=== PATIENT | male | born 1995 | race Caucasian/White ===

== ENCOUNTER 2024-05-20 09:34 | Emergency (ER) | payer BC, SELFPAY ==
[2024-05-20 10:06] VITALS: BP 150/95; PULSE 86; RESP 18; TEMP 37.2; O2SAT 100; BMI 27.3
--- NOTE | 2024-05-20 10:09 | XR_ITS ---
FINAL REPORT CLINICAL HISTORY: N/V/D 7-10 days FINDINGS: The visualized intestinal gas pattern appears unremarkable without evidence to suggest obstruction. No abnormal radiopacities are seen in the abdomen. IMPRESSION: No acute findings. Reviewed, Interpreted and Dictated by Megan Paz MD Transcribed by Susan Urrutia Authenticated and [facility]
--- NOTE | 2024-05-20 10:36 | ED_ITS ---
Discharge Plan Disposition Patient Disposition: Home, Self-Care Condition: Good Prescriptions Prescriptions: New ondansetron 4 mg Tablet,Disintegrating 4 mg PO Q8H PRN (Reason: Nausea) Qty: 10 0RF mupirocin 2 % ointment 1 applic topical TID 7 Days Qty: 15 0RF Referrals Follow up/Referrals: Christiano Ardon [Primary Care Provider] - See instructions Activity Restrictions/Add. Instructions Additional Instructions/Restrictions: Drink plenty of fluids. Eat a bland diet for the next few days to allow you GI tract time to start healing. Take the zofran (ondesetron) as directed for nausea. Follow up with your regular doctor. GO TO THE ER FOR ANY WORSENING SYMPTOMS Return a stool sample to here so it can be analyzed for different infections. Sometimes when diarrhea has went on this long you need to be treated with antibiotic, but we need to know what's causing the diarrhea before it treated. Clinical Impressions Clinical Impression: Diarrhea Stand Alone Forms Stand Alone Forms: Work/School Release Instructions Patient Instructions: Diarrhea Print Language Print Language: Burkinan Discharge ED Provider: Armani Benjamin [facility] General Stated complaint: diarrhea x 1 week, abd pain, blood in stool, H/A Mode of Arrival: Ambulatory Source of Information: Patient Time Seen by Provider: 05/20/24 10:36 Description of Symptoms (Recalled from Triage Doc. by RN): CLEAR DIARRHEA X10 DAYS , BLOOD IN STOOL FOR THE LAST 4 DAYS, BILATERAL LOWER ABD PAIN (CRAMPING) HEENT Symptoms (Recalled from RN notes): No Resp Symptoms (Recalled from RN notes): No Skin Symptoms (Recalled from RN notes): No MS Symptoms (Recalled from RN notes): No Functional Status (Recalled from RN notes): WNL History of Present Illness Provider Complaint: He states that for the past 1 week he has had diarrhea. Over the past few days his diarrhea has looked like there is bright red blood in it. Related Data Previous Rx's ?Medication ?Instructions ?Recorded mupirocin 2 % topical ointment 1 applic topical TID 7 days #15 05/20/24 grams ondansetron 4 mg disintegrating 4 mg PO Q8H PRN Nausea #10 tabs 05/20/24 tablet Allergies Allergy/AdvReac Type Severity Reaction Status Date / Time No Known Allergies Allergy Verified 05/20/24 10:08 Worker's Comp Is this a Worker's Comp case?: No [facility] Disclaimer: The information contained in this section may have been updated after the patient was seen, as this information can be updated by other users. Social History Smoking Status: Never smoker alcohol intake: never current occupational status: employed Travel in the last 8 weeks: None ROS Obtained: Yes All systems reviewed & no additional complaints except as documented Constitutional Constitutional: Denies chills and Denies fever(s) Eyes Eyes: Denies eye discharge ENT Ears, Nose, Mouth, and Throat: Denies dizziness, Denies otalgia and Denies sore throat Cardiovascular Cardiovascular: Denies chest pain Respiratory Respiratory: Denies shortness of breath, Denies chest congestion, Denies cough, Denies stridor and Denies wheezing Gastrointestinal Gastrointestingal: Reports as per HPI, cramping, diarrhea and nausea; Denies abdominal pain or vomiting Musculoskeletal Musculoskeletal: Reports system reviewed and no additional complaints, except as documented and Denies arthralgias Integumentary/Breasts Skin/Breast: Denies rash Neurologic Neurologic: Denies dizziness and Denies paresthesias Allergic/Immunologic Allergic/Immunologic: Denies wheezing Physical Exam General General appearance: alert and in no apparent distress Head Head exam: atraumatic and normocephalic Eye Eye exam: Present normal appearance, PERRL and EOMI ENT ENT exam: Present normal exam, normal oropharynx, mucous membranes moist, TM's normal bilaterally and normal external ear exam Neck Neck exam: Present normal inspection, full ROM and trachea midline; Absent tenderness, meningismus or lymphadenopathy Chest Chest inspection: Present normal inspection and symmetric chest wall rise; Absent tenderness, rash or abscess Respiratory Respiratory exam: Present normal lung sounds bilaterally; Absent respiratory distress, wheezes or stridor Cardiovascular Cardiovascular exam: Present regular rate and normal rhythm; Absent irregular rhythm, systolic murmur, diastolic murmur or JVD Abdominal Exam Abdominal exam: Present soft and hyperactive bowel sounds; Absent distention, tenderness, guarding, rebound, rigidity, psoas sign, obturator sign, heel tap sign, Recio's sign, Rovsing's sign or tenderness at McBurney's Point Extremities Exam Extremities exam: Present normal inspection and full ROM; Absent tenderness Back Exam Back exam: Present normal inspection and full ROM; Absent tenderness, CVA tenderness (R) or CVA tenderness (L) Neurological Exam Neurological exam: Present alert, oriented X3 and CN II-XII intact Psychiatric Psychiatric exam: Present normal affect and normal mood Skin Skin exam: Present warm, dry, intact and normal color Lymphatic Lymphatic Findings: no adenopathy Medical Decision Making Medical Records Medical records reviewed: No I reviewed the patient's medical records. Screening: Per USPSTF and CDC recommendations, given the prevalence of disease in our region, it is our hospital?s policy to screen for HIV and viral Hepatitis for all patients aged 18 and over and those with ongoing risk factors. Mio Inquiry Pt receiving controlled substance: No Vital Signs: 05/20/24 10:06 Temperature 99.0 F Temperature Source Oral Pulse Rate [Left Radial] 86 Respiratory Rate 18 Blood Pressure [Left Arm] 150/95 H Blood Pressure Mean [Left Arm] 113 02 Sat by Pulse Oximetry 100 Orders (Tests/Meds): ORDERS Category Date Time Status KUB (single view) [XR KUB] Stat Exams 05/20/24 10:09 Completed
[2024-05-20 11:23] VITALS: BP 150/95; PULSE 86; RESP 18; TEMP 37.2
== END 2024-05-20 11:23 | disposition home or self-care (01) ==
PROVIDERS: Emergency Provider Nurse Practitioner Family; PCP Family Medicine
DX: R19.7 Diarrhea, unspecified (principal)
CPT/HCPCS: 74018; 99213; G0381

== ENCOUNTER 2024-05-20 13:06 | Outpatient (CLI) | payer BC, SELFPAY ==
[2024-05-20 13:13] LABS: Adenovirus F 40/41, stool Not Detected (NotDetected); Astrovirus Not Detected (NotDetected); Campylobacter Not Detected (NotDetected); Clostridium Difficile A/B, PCR Not Detected (NotDetected); Cryptosporidium Not Detected (NotDetected); Cyclospora Cayetanesis Not Detected (NotDetected); Entamoeba histolytica Not Detected (NotDetected); Enteroaggregative E coli Not Detected (NotDetected); Enteropathogenic E coli Not Detected (NotDetected); Enterotoxigenic E coli Not Detected (NotDetected); Giardia lamblia Not Detected (NotDetected); Norovirus Not Detected (NotDetected); Plesimonas Shigalloides, PCR Not Detected (NotDetected); Rotavirus A Not Detected (NotDetected); Salmonella, PCR Not Detected (NotDetected); Sapovirus Not Detected (NotDetected); Shiga-like toxin E coli Not Detected (NotDetected); Shigella Enterovasive E coli Not Detected (NotDetected); Vibrio Cholerae Not Detected (NotDetected); Vibrio, PCR Not Detected (NotDetected); Yersinia Entercolitica, PCR Not Detected (NotDetected)
== END 2024-05-20 23:59 | disposition home or self-care (01) ==
LOC: LAB 13:09
PROVIDERS: PCP Family Medicine; Visit Provider Nurse Practitioner Family
DX: R19.7 Diarrhea, unspecified (principal); K92.1 Melena
CPT/HCPCS: 87507

== ENCOUNTER 2024-07-13 08:59 | Outpatient (CLI) | payer BC, SELFPAY ==
[2024-07-13 09:39] LABS: Basophils % 0.4 % (0.1-2.0); Eosinophils # 0.3 K/mm3 (0.0-0.4); Eosinophils % 3.3 % (0.1-12.0); Hemoglobin 14.9 g/dL (14.1-18.0); Lymphocytes # 2.3 K/mm3 (0.7-4.5); Lymphocytes % 27.5 % (10-50); Mean Corpuscular HGB Conc 34.7 g/dL (31.8-35.4); Mean Corpuscular Hemoglobin 29.7 pg (27.0-31.2); Mean Corpuscular Volume 85.7 fl (80-94); Mean Platelet Volume 10.1 fl (7.4-10.4); Monocytes # 0.6 K/mm3 (0.1-1.0); Monocytes % 6.5 % (1.7-9.3); Neutrophils # 5.3 K/mm3 (1.8-7.8); Neutrophils % 61.9 % (37.0-80.0); Platelet Count 277 K/mm3 (142-424); Red Blood Count 5.02 M/mm3 (4.60-6.20); Red Cell Distribution Width 12.4 % (11.5-17.5); White Blood Count 8.5 K/mm3 (4.8-10.8)
[2024-07-13 11:12] LABS: Alanine Aminotransferase 43 U/L (12-78); Albumin Level 4.8 g/dl (3.5-5.0); Albumin/Globulin Ratio 2.4 (1.1-1.8); Alkaline Phosphatase 60 U/L (38-126); Anion Gap 12.6 mEq/L (5-15); Aspartate Amino Transferase 38 U/L (17-59); Bilirubin,Total 0.3 mg/dl (0.2-1.3); Blood Urea Nitrogen 17 mg/dl (9-20); Calcium 9.3 mg/dl (8.4-10.2); Carbon Dioxide 27 mmol/L (22.0-30.0); Chloride 102 mmol/L (98-107); Estimated Glomerular Filt Rate 90 ml/min (>60); GFR (African American) 108 ML/MIN (>60); Glucose 123 mg/dl (74-100); Potassium 3.6 mmoL/L (3.5-5.1); Sodium 138 mmol/L (136-145); Total Protein,Serum 6.8 g/dl (6.3-8.2)
[2024-07-14 10:39] LABS: HBsAg Screen Negative (Negative); HCV Ab Non Reactive (Non Reactive); Hep A Ab, IGM Negative (Negative); Hep B Core Ab, IgM Negative (Negative)
[2024-07-16 06:22] LABS: QuantiFERON-TB Gold Plus Negative (Negative)
== END 2024-07-13 23:59 | disposition home or self-care (01) ==
LOC: LAB 09:00
PROVIDERS: PCP Family Medicine; Visit Provider Physician Assistant Medical
DX: L40.0 Psoriasis vulgaris (principal)
CPT/HCPCS: 36415; 80053; 80074; 85025; 86480; 86803

== ENCOUNTER 2025-03-21 10:21 | Outpatient (CLI) | payer BC, SELFPAY ==
--- NOTE | 2025-03-21 10:24 | XR_ITS ---
FINAL REPORT TECHNIQUE: 3 views right foot CLINICAL HISTORY: Evaluation of Right Foot Pain NKI COMPARISON: None FINDINGS: RIGHT FOOT: 3 images of the right foot were obtained. There is no evidence of fracture or dislocation. The joint spaces are intact. There is no soft tissue abnormality identified. IMPRESSION: No acute bony abnormality. Reviewed, Interpreted and Dictated by Simone Garcia MD Transcribed by Malia Pierre Authenticated and [facility]
--- NOTE | 2025-03-21 10:24 | XR_ITS ---
FINAL REPORT TECHNIQUE: Left foot 3 views CLINICAL HISTORY: Evaluation of Left Foot Pain NKI COMPARISON: None FINDINGS: LEFT FOOT: 3 images of the left foot were obtained. There is no evidence of fracture or dislocation. The joint spaces are intact. There is no soft tissue abnormality identified. IMPRESSION: No acute bony abnormality. Reviewed, Interpreted and Dictated by Simone Garcia MD Transcribed by Malia Pierre Authenticated and [facility]
--- OUTSIDE RECORDS SUMMARY | 2025-03-21 15:09 | XMS_ITS | Clinical Summary ---
[facility] Organization [facility] Address [address] [place] [address] Care Team Providers Care Center Line Cutter Operator Name Role Phone Christiano Ardon MD Primary Care Provider [phone] Allergies No known active allergies Medications levoFLOXacin (LEVAQUIN) 500 MG tabletIndication s:Paronychia of great toe, left Take 1 tablet by mouth Daily. 5 tablet 11/19/2024 Active Active Problems Problem Noted Date Diagnosed Date Bipolar 1 disorder 08/08/2020 Mood disorder 01/14/2020 Psoriasis 09/17/2017 Overview (01/14/2020): See Dermatology Center Encounters Date Type Department Care Team Description 01/26/2025 Telephone [facility] [address] [place] [address] Christiano Ardon MD Results 01/07/2025 Telephone [facility] [address] [place] [address] Christiano Ardon MD REFERAL REQUEST from Last 3 Months Immunizations Immunization Administration Dates Next Due DTaP 11/06/2000, 8,05/14/1997,01/29/1997,0 1996 Flu Vaccine Quad PF >36MO 02/06/2019 HPV Quadrivalent 02/10/2013 Hep A, 2 Dose 09/17/2017 Hep A, Unspecified 02/10/2013 Hep B, Unspecified 09/16/1997,1996, 997 HiB 04/19/1998,05/14/1997,01/29/1997 ,1996 IPV 11/03/2001,11/06/2000,01/29/1997 ,1996 Influenza, Unspecified 02/10/2013,01/22/2012,02/2011,01/19/2010 MMR 11/06/2000,01/16/1998 Meningococcal MCV4P (Menactra) 02/10/2013,2007 Tdap 03/15/2019,09/17/2017,12/09/2007 Varicella 12/09/2007,12/16/1997 Family History Medical History Relation Name Comments Arthritis Father Diabetes Father Hyperlipidemia Father Hypertension Father Liver disease Father Stroke Father Arthritis Mother Diabetes Mother Hyperlipidemia Mother Hypertension Mother Kidney disease Mother Relation Name Status Comments Father Alive Mother Social History Tobacco Use Types Packs/Day Years Used Date Smoking Tobacco: Every Day Cigarettes 1.5 12 Smokeless Tobacco: Never Comments:working on this 202 0, slowly reducing Alcohol Use Standard Drinks/Week Comments Yes 0 (1 standard drink = 0.6 oz pur e alcohol) on weekends PHQ-2 Answer Date Recorded Patient Health Questionnaire-2 Score 0 11/19/2024 Sex and Gender Information Value Date Recorded Sex Assigned at Not on file Legal Sex Male 3:20 PM EDT Gender Identity Not on file Sexual Orientation Not on file Occupation Industry Job Start Date Job End Date Not on file Not on file Not on file Not on file Last Filed Vital Signs Vital Sign Reading Time Taken Comments Blood Pressure 120/80 11/19/2024 1:52 PM EDT Pulse 89 11/19/2024 1:52 PM EDT Temperature 37.2 C (99 F) 11/19/2024 1:52 PM EDT Respiratory Rate 18 11/19/2024 1:52 PM EDT Oxygen Saturation 97% 11/19/2024 1:52 PM EDT Inhaled Oxygen Concentration - - Weight 83.9 kg (185 lb) 11/19/2024 1:52 PM EDT Height 180.3 cm (5' 11 ) 11/19/2024 1:52 PM EDT Body Mass Index 25.8 11/19/2024 1:52 PM EDT Plan of Treatment Health Maintenance Due Date Last Done Comments Pneumococcal Vaccine 0-49 (1 of 2 - PCV) 10/02/2015 HEPATITIS C SCREENING 01/14/2020 INFLUENZA VACCINE 12/03/2024 02/06/2019, , 01/22/2012, Additional history exists ANNUAL PHYSICAL 12/09/2024 12/10/2023 TDAP/TD VACCINES (4 - Td or Tdap) 03/15/2029 03/15/2019, 09/17/2017, 12/09/2007 Insurance [facility] PPO Care Teams Center Line Cutter Operator Relationship Specialty Start Date End Date Christiano Ardon MD [address] [place] [address] PCP - General Family Medicine 01/14/20
--- OUTSIDE RECORDS SUMMARY | 2025-03-21 15:09 | XMS_ITS | Clinical Summary ---
Author Organization [facility] Address [address] [place] [address] Phone Care Team Providers Care Crop Duster Helper Name Role Phone Unavailable Unavailable Conditions or Problems No information available. Medications No information available. Medications Administered No information available. Allergies, Adverse Reactions, Alerts No information available. Results No information available. Plan of Care No information available. Procedures No information available. Vital Signs No information available. Immunizations No information available. Advance Directives No information available.
--- OUTSIDE RECORDS SUMMARY | 2025-03-21 15:10 | XMS_ITS | Encounter Summary ---
Author Organization [facility] Address [address] [place] [id number] Care Team Providers Care Stripper Black And White Name Role Phone Christiano Ardon MD Primary Care Provider [phone] Reason for Visit * Reason Onset Date Comments Results 01/26/2025 Encounter Details Date Type Department Care Team (Late st Contact Info) Description 01/26/2025 Telephone [facility] [address] [place] [address] Christiano Ardon MD [address] [place] [address] Results Social History Tobacco Use Types Packs/Day Years [...] file Not on file Not on file documented as of this encounter Miscellaneous Notes * Telephone Encounter - Christiano Ardon MD - 01/26/2025 3:50 PM EDT ? Looks like referral sent on 01/07/25 * Telephone Encounter - Wendy Judge MA - 01/26/2025 3:42 PM EDT New msg: Gladis, I was wondering if you could resend the podiatry referral to Dr Chapa at [facility],I've been trying to get scheduled and they said they did not have the referral. Thank you documented in this encounter Plan of Treatment Not on file documented as of this encounter Visit Diagnoses Not on filedocumented in this encounter Care Teams Stripper Black And White Relationship Specialty Start Date End Date Christiano Ardon MD [address] [place] [address] PCP - General Family Medicine 01/14/20 documented as of this encounter
== END 2025-03-21 23:59 ==
LOC: RAD 10:22
PROVIDERS: PCP Family Medicine; Visit Provider Podiatrist
DX: M79.672 Pain in left foot (principal); M79.671 Pain in right foot
CPT/HCPCS: 73630

== ENCOUNTER 2025-03-22 09:42 | Outpatient (CLI) | payer BC, SELFPAY ==
[2025-03-22 09:57] LABS: Hematocrit 46.3 % (42.0-52.0); Hemoglobin 15.4 g/dL (14.1-18.0); Immature Granulocytes % 0.5 %; Mean Corpuscular HGB Conc 33.3 g/dL (31.8-35.4); Mean Corpuscular Hemoglobin 29.3 pg (27.0-31.2); Mean Corpuscular Volume 88.2 fl (80-94); Nucleated Red Blood Cells % 0 %; Platelet Count 244 K/mm3 (142-424); Red Blood Count 5.25 M/mm3 (4.60-6.20); Red Cell Distribution Width-SD 42.3 fL; White Blood Count 6.4 K/mm3 (4.8-10.8)
[2025-03-22 10:38] LABS: Alanine Aminotransferase 27 U/L (12-78); Albumin Level 4.5 g/dl (3.5-5.0); Albumin/Globulin Ratio 2.1 (1.1-1.8); Alkaline Phosphatase 67 U/L (38-126); Anion Gap 10.5 mEq/L (5-15); Aspartate Amino Transferase 27 U/L (17-59); Bilirubin,Total 0.4 mg/dl (0.2-1.3); Blood Urea Nitrogen 12 mg/dl (9-20); Calcium 9.6 mg/dl (8.4-10.2); Carbon Dioxide 29 mmol/L (22.0-30.0); Chloride 104 mmol/L (98-107); Creatinine,Serum 0.90 mg/dl (0.66-1.25); Estimated Glomerular Filt Rate 100 ml/min (>60); GFR (African American) 122 ML/MIN (>60); Globulin 2.1 g/dL (1.3-3.2); Glucose 106 mg/dl (74-100); Potassium 4.5 mmoL/L (3.5-5.1); Sodium 139 mmol/L (136-145); Total Protein,Serum 6.6 g/dl (6.3-8.2); Uric Acid 5.2 mg/dl (3.5-8.5)
[2025-03-22 10:43] LABS: C-Reactive Protein 1.0 mg/L (0-4)
[2025-03-23 08:38] LABS: RA Latex Turbid. <10.0 IU/mL (<14.0)
== END 2025-03-22 23:59 | disposition home or self-care (01) ==
LOC: LAB 09:42
PROVIDERS: PCP Family Medicine; Visit Provider Podiatrist
DX: M79.672 Pain in left foot (principal); M79.671 Pain in right foot; L08.9 Local infection of the skin and subcutaneous tissue, unspecified; M25.579 Pain in unspecified ankle and joints of unspecified foot
CPT/HCPCS: 36415; 80053; 84550; 85025; 85651; 86038; 86140; 86431